=== PATIENT | male | born 1990 | race Caucasian/White ===

== ENCOUNTER 2020-09-24 07:15 | Emergency (ER) | payer SELFPAY ==
[~2020-09-24] VITALS: Ht 167.6 cm; Wt 77.1 kg
--- NOTE | 2020-09-24 07:20 | NUR ---
Paqtient brought in by [facility] for overdose on fentanyl, no narcan given by SUSAN RON noted at bedside, patient visit is to be cleared to book
[2020-09-24] MEDS ORDERED: SULFAMETH/TRIMETH 800/160 MG TABLET PO ONE (07:30)
[2020-09-24] MEDS ORDERED: CEphaleXIN 500 MG CAPSULE PO ONE (07:30)
[2020-09-24] MEDS ORDERED: SULFAMETH/TRIMETH 800/160 MG TABLET ONE (07:40)
[2020-09-24] MEDS ORDERED: CEphaleXIN 500 MG CAPSULE ONE (07:40)
[2020-09-24 07:50] LABS: HEMATOCRIT 39.1 % (36.7-47.1); MEAN CORPUSCULAR HEMOGLOBIN 30.7 uug (23.8-33.4); MEAN CORPUSCULAR VOLUME 88.6 fL (73.0-96.2); PLATELET COUNT (AUTO) 326 K/uL (152-348)
[2020-09-24 07:58] LABS: CARBON DIOXIDE 31 mmol/L (21-32); CHLORIDE 105 mmol/L (98-107); CREATININE 0.9 mg/dL (0.6-1.3); GLUCOSE 90 mg/dL (74-106); UREA NITROGEN, BLOOD 19 mg/dL (7-18)
[2020-09-24 08:00] LABS: ETHANOL < 3 MG/DL (0-0); MAGNESIUM 2.7 mg/dL (1.8-2.4); PHOSPHOROUS 3.2 mg/dL (2.5-4.9)
[2020-09-24 08:03] LABS: ACETAMINOPHEN < 2.0 ug/mL (10-30); ALANINE AMINOTRANSFERASE 29 U/L (16-63); ALKALINE PHOSPHATASE 81 U/L (50-136); ASPARTATE AMINOTRANSFERASE 26 U/L (15-37); BILIRUBIN,DIRECT 0.1 mg/dL (0.0-0.2); BILIRUBIN,TOTAL 0.3 mg/dL (0.2-1.0); TOTAL PROTEIN, SERUM 7.2 g/dL (6.4-8.2)
--- NOTE | 2020-09-24 08:03 | NUR ---
[employer] noted at bedside, no behaviors noted from patient, patient is Alert and oriented, able to swallow PO medications without difficulty, will continue to monitor
[2020-09-24] MEDS ORDERED: IV NORMAL SALINE 1000 ML BAG IV ONE (08:15)
--- NOTE | 2020-09-24 08:51 | NUR ---
unable to get IV at this time x3 attempts, made aware
--- NOTE | 2020-09-24 09:10 | NUR ---
fluids encouraged at this time, patient unable to given urine sample
--- NOTE | 2020-09-24 09:23 | NUR ---
second nurse attempt to place an IV unsuccessful
[2020-09-24] MEDS ORDERED: CEPH500T PO (09:28)
[2020-09-24] MEDS ORDERED: SULF1TAB48 PO (09:28)
[2020-09-24] MEDS ORDERED: AZITHROMYCIN 250 MG TABLET PO ONE (09:30)
[2020-09-24] MEDS ORDERED: CEFTRIAXONE 500 MG VIAL IM ONE (09:30)
--- NOTE | 2020-09-24 10:00 | NUR ---
Patient taken into custody by [employer], patient is medically cleared to be booked. Patient discharged in stable condition. Written and verbal after care instructions given. Patient verbalizes understanding of instructions. Stressed follow up or return to ER for worsening s/s.
[2020-09-24] MEDS ORDERED: AZITHROMYCIN 250 MG TABLET ONE (10:01)
[2020-09-24] MEDS ORDERED: LIDOCAINE HCL 1% 20 ML VIAL ONE (10:02)
[2020-09-24] MEDS ORDERED: CEFTRIAXONE 500 MG VIAL ONE (10:02)
[2020-09-24 10:35] VITALS: BP 151/88
== END 2020-09-24 10:00 ==
LOC: ER 07:19
DX: T40.411A Poisoning by fentanyl or fentanyl analogs, accidental (unintentional), initial encounter (principal); R41.82 Altered mental status, unspecified; F11.10 Opioid abuse, uncomplicated; Y92.89 Other specified places as the place of occurrence of the external cause; F15.20 Other stimulant dependence, uncomplicated; F12.20 Cannabis dependence, uncomplicated; L03.114 Cellulitis of left upper limb; R30.0 Dysuria; R36.9 Urethral discharge, unspecified; F17.290 Nicotine dependence, other tobacco product, uncomplicated; Z82.49 Family history of ischemic heart disease and other diseases of the circulatory system; R00.0 Tachycardia, unspecified
CPT/HCPCS: 36415; 71045; 80048; 80076; 80299; 80320; 83735; 84100; 84484; 85025; 93005; 99291; J0696; J3490; 70030-TC; A4663; G0480; J7030; Q0144